=== PATIENT | female | born 1960 | race Caucasian/White ===

== ENCOUNTER 2018-07-06 05:07 | Emergency (ER) | payer BC, OTHER ==
[2018-07-06] MEDS ORDERED: Ketorolac Tromethamine 30 MG/ML VIAL ONE (05:30)
[2018-07-06 05:43] LABS: Bilirubin Negative (Negative); Blood, Urine Negative (Negative); Clarity Hazy (Clear); Glucose, Urine (Dipstick) Negative (Negative); Leukocyte Negative (Negative); Nitrite Negative (Negative); Protein, Urine (Dipstick) Negative (Neg-Trace); Urobilinogen 0.2 mg/dL (0.2-1.0); pH, Urine 5.5 (5.0-9.0)
[2018-07-06 05:56] LABS: #Basophils 0.1 thou/uL (0.0-0.2); #Eosinphils 0.5 thou/uL (0.0-0.7); #Lymphocytes 2.4 thou/uL (1.20-3.40); #Monocytes 0.8 thou/uL (0.11-0.59); #Neutrophils 8.8 thou/uL (1.40-6.50); %Basophils 0.9 % (0.0-1.0); %Eosinophils 4.3 % (0.0-10.0); %Monocytes 6.2 % (0.0-10.0); %Neutrophils 69.6 % (42.0-75.0); Hemoglobin 13.5 g/dL (12.0-16.0); Mean Corpuscular HGB CONC 31.5 g/dL (32.0-36.0); Mean Corpuscular Hemoglobin 29.2 pg (27.0-31.0); Mean Corpuscular Volume 92.7 fL (78.0-98.0); Mean Platelet Volume 6.6 fL (7.4-10.4); Platelet Count 425 thou/uL (130-400); RBC Distribution Width 12.9 % (11.5-14.5); Red Blood Cell (RBC) Count 4.62 mill/uL (4.20-5.40); White Blood Cell (WBC) Count 12.6 thou/uL (4.8-10.8)
[2018-07-06 06:07] LABS: ALT (SGPT) 11 U/L (8-55); AST (SGOT) 13 U/L (5-34); Albumin 3.9 g/dL (3.5-5.0); Alkaline Phosphatase 109 U/L (40-150); Anion Gap 15 mmol/L (10-20); BUN (Urea Nitrogen) 13 mg/dL (9.8-20.1); Bilirubin, Total 0.6 mg/dL (0.2-1.2); Calc. Creatinine Clearance 0 mL/min (70-130); Calcium 9.2 mg/dL (7.8-10.44); Carbon Dioxide 25 mmol/L (22-29); Chloride 104 mmol/L (98-107); Estimated GFR-MDRD 86; Globulin 2.8 g/dL (2.4-3.5); Glucose 100 mg/dL (70-105); Potassium 3.6 mmol/L (3.5-5.1); Protein, Total 6.7 g/dL (6.0-8.3); Sodium 140 mmol/L (136-145)
--- NOTE | 2018-07-06 07:22 | CT ---
CT ABDOMEN AND PELVIS WITHOUT IV CONTRAST: Date: 07/06/18 INDICATION: History of lower abdominal pain since yesterday with postoperative history of gastric sleeve, cholecy stectomy, and hysterectomy. COMPARISON: None. FINDINGS: There is scattered diverticula involving the colon. There is wall thickening and pericolonic strandin g involving the proximal descending colon. No drainable fluid collection is evident. There is a mild amount of retained stool within the colon. There is a small hiatal hernia. There is postsurgical change of gastric sleeve procedure. The lung bases are clear. The unopacified liver, pancreas, adrenal glands, and kidneys are within nor mal limits. The spleen is normal appearing. No free fluid or enlarged lymph nodes are evident. There is a normal appendix in the right lower quadrant. The bladder is decompressed. The rectum and p erirectal soft tissues are unremarkable appearing. No definite acute osseous abnormality is evident. There is scattered degenerative and osteoarthritic change. IMPRESSION: 1. Findings suspicious for noncomplicated descending colonic diverticulitis. Appropriate colon scree natacha after abatement of patient's symptoms is recommended. 2. Other findings as above. POS: [facility]NE
== END 2018-07-06 06:45 | disposition home or self-care (01) ==
LOC: BURERS 05:07
DX: K57.32 Diverticulitis of large intestine without perforation or abscess without bleeding (principal)
CPT/HCPCS: 74176; 80053; 81003; 83605; 85025; 96374; J1885